=== PATIENT | female | born 1940 | race Caucasian/White ===

== ENCOUNTER 2021-02-22 11:02 | Emergency (ER) | payer MEDICARE, SELFPAY ==
--- NOTE | ~2021-02-22 | XR_ITS ---
XR lumbar spine 2-3V 02/22/2021 12:46 Indication: Left sciatic Procedure: 3 views lumbar spine Comparison: No prior studies for comparison. Findings: There is mild disc narrowing at L5-S1. There is grade 1 spondylolisthesis at L4-5 secondary to facet hypertrophy. There is mild multilevel facet degenerative change. No acute fracture is ident ified. There are cholecystectomy clips. There is a probable left renal stone. Sacral foramen are symm etric. There are mild degenerative changes of the hips. Impression: 1: Mild lumbar spondylosis with grade 1 degenerative spondylolisthesis at L4-5. Reviewed, dictated and finalized at location A. Impression: 1: Mild lumbar spondylosis with grade 1 degenerative spondylolisthesis at L4-5.
[2021-02-22 11:46] VITALS: BP 197/61; PULSE 63; RESP 16; TEMP 37.2; O2SAT 97
[2021-02-22] MEDS: KETOROLAC 30 MG/ML VIAL (*BKC) IM (12:05)
[2021-02-22] MEDS: diazePAM (*CRX) 2 MG TABLET PO (12:06)
--- NOTE | 2021-02-22 13:49 | ED.BACK ---
HPI - Back Pain/Injury General Chief Complaint: Back Pain/Injury Stated Complaint: Back Pain going down l leg Time Seen by Provider: 02/22/21 11:17 History of Present Illness HPI Narrative: Patient is an 80-year-old female who presents ER with low back pain. Began yesterday while she was straining to have bowel movement. Pain is lateral aspect of the lower left back radiating down into the buttock and around into the anterior thigh. No functional deficit. No numbness or tingling. Has tried oral medications at home without relief of discomfort. Patient is unable to take anti-inflammatories to the fact that she is on Eliquis. Denies saddle anesthesia or urinary/stooling difficulties other than the previously known constipation. Related Data Home Medications Medication Instructions Recorded Confirmed acetaminophen 1,000 mg PO DAILY PRN 02/22/21 amlodipine 02/22/21 02/22/21 apixaban [Eliquis] mg 02/22/21 blood sugar diagnostic [OneTouch 02/22/21 02/22/21 Verio test strips] cholecalciferol (vitamin D3) 02/22/21 [Vitamin D3] clopidogrel 02/22/21 hydralazine 02/22/21 lisinopril 02/22/21 magnesium 250 mg PO BID 02/22/21 multivit with min-folic acid tablet PO 02/22/21 [Adult One Daily Multivitamin] pantoprazole PO 02/22/21 rosuvastatin mg 02/22/21 sotalol 02/22/21 Allergies Allergy/AdvReac Type Severity Reaction Status Date / Time adhesive Allergy Blister Verified 02/22/21 11:46 aspirin Allergy Nose Bleed Verified 02/22/21 11:46 oxycodone Allergy Rash Verified 02/22/21 11:46 pineapple Allergy Blister Verified 02/22/21 11:46 Sulfa (Sulfonamide Allergy Rash Verified 02/22/21 11:46 Antibiotics) tomato Allergy Blister Verified 02/22/21 11:46 Review of Systems Review of Systems: All systems reviewed & are unremarkable except as noted in HPI and below Constitutional: Constitutional: Denies chills, Denies fever(s) and Denies weakness Gastrointestinal: Gastrointestinal: Denies abdominal pain, Reports constipation, Denies nausea and Denies vomiting Musculoskeletal: Musculoskeletal: Reports back pain, Denies arthralgias, Denies joint swelling and Reports muscle cramps Neurologic: Denies focal weakness and Denies numbness PMFSH Past Medical History Medical History (Updated 02/22/21 @ 13:55 by David Welch MD) Atrial fibrillation Diabetes GERD (gastroesophageal reflux disease) Hypercholesterolemia Hypertension Surgical History Surgical History (Updated 02/22/21 @ 13:53 by David Welch MD) History of cholecystectomy History of percutaneous coronary intervention Social History Social History (Updated 02/22/21 @ 13:53 by David Welch MD) Smoking status: Never smoker Exam Narrative: GENERAL: Well-appearing, well-nourished, and in no acute distress. HEAD: Normocephalic, atraumatic. CHEST: Clear to auscultation. No respiratory distress. HEART: Regular rate and rhythm. Normal peripheral pulses. ABDOMEN: Soft, nontender, nondistended. Back: No reproducible midline tenderness of the thoracic or lumbar spine. Mild left paraspinal muscular tenderness at the level of L4. Positive straight leg raise left lower extremity. EXTREMITIES: Normal range of motion. No edema. 5/5 sensation intact left anterior thigh. SKIN: Warm, dry, no rash. NEURO: Alert and oriented x3. Course Course Emergency Course: Informed results. Symptoms improving with Valium and Toradol. Discharge home with muscle relaxers. Vital Signs Vital signs: Vital Signs Temperature 99 F 02/22/21 11:46 Pulse Rate 63 02/22/21 11:46 Respiratory Rate 16 02/22/21 11:46 Blood Pressure 197/61 H 02/22/21 11:46 Pulse Oximetry 97 02/22/21 11:46 Temperature 99 F 02/22/21 11:46 Pulse Rate 63 02/22/21 11:46 Respiratory Rate 16 02/22/21 11:46 Blood Pressure 197/61 H 02/22/21 11:46 Pulse Oximetry 97 02/22/21 11:46 MDM - Back Pain/Injury Imaging Data Radiologist's i
[2021-02-22 14:00] VITALS: BP 157/68; PULSE 66; RESP 16; O2SAT 95
== END 2021-02-22 14:10 | disposition home or self-care (01) ==
PROVIDERS: Emergency Provider Emergency Medicine
DX: S39.012A Strain of muscle, fascia and tendon of lower back, initial encounter (principal); M54.42 Lumbago with sciatica, left side; K59.00 Constipation, unspecified; I48.91 Unspecified atrial fibrillation; Z79.01 Long term (current) use of anticoagulants; E11.9 Type 2 diabetes mellitus without complications; K21.9 Gastro-esophageal reflux disease without esophagitis; E78.00 Pure hypercholesterolemia, unspecified; I10 Essential (primary) hypertension; M47.816 Spondylosis without myelopathy or radiculopathy, lumbar region; X50.9XXA Other and unspecified overexertion or strenuous movements or postures, initial encounter
CPT/HCPCS: 72100; 96372; 99283; A9270; J1885